=== PATIENT | female | born 1980 | race Caucasian/White ===

== ENCOUNTER 2020-10-28 10:04 | Inpatient (IN) ==
[2020-10-28] MEDS ORDERED: Ringers Solution, Lactated 2,000 ML ONE (10:59)
[2020-10-28] MEDS ORDERED: CeFAZolin 2,000MG/50ML DUPLEX 2,000 MG/50 ML BAG IVPB ONE (11:01)
[2020-10-28] MEDS ORDERED: Famotidine 20 MG/2 ML VIAL IVP ONE (11:01)
[2020-10-28] MEDS ORDERED: Oxytocin 20 units/ LR 1000 mL 20 UNIT/1,000 ML BAG IVC ONE (11:01)
[2020-10-28] MEDS ORDERED: Ringers Solution, Lactated 1,000 ML IVC ONE (11:01)
[2020-10-28] MEDS ORDERED: Metoclopramide 10 MG/2 ML VIAL IVP ONE (11:01)
[2020-10-28 11:19] LABS: Basophils % 0.2 %; Eosinophils # 0.1 K/mcL (0.0-0.6); Eosinophils % 0.6 %; Hematocrit 30.7 % (35.3-44.9); Hemoglobin 10.6 g/dL (11.5-15.4); Immature Granulocytes % 0.5 % (0-4); Lymphocytes # 1.9 K/mcL (0.6-4.6); Lymphocytes % 18.6 %; Mean Corpuscular HGB Conc 34.5 g/dL (31.6-35.5); Mean Corpuscular Hemoglobin 31.3 pg (28.0-33.3); Mean Corpuscular Volume 90.6 fL (83.0-100.0); Mean Platelet Volume 9.7 fL (9.4-12.4); Monocytes # 0.6 K/mcL (0.0-1.3); Monocytes % 5.6 %; Neutrophils # 7.4 K/mcL (1.6-8.9); Platelet Count 136 K/mcL (140-400); Red Blood Count 3.39 M/mcL (3.82-4.97); Red Cell Distribution Width 13.1 % (11.5-14.5); Segmented Neutrophils % 74.5 %
[2020-10-28] MEDS ORDERED: *HR* HYDROmorphone PF 0.5 MG/0.5 ML SYRINGE IVP PRN (11:23)
[2020-10-28] MEDS ORDERED: Ondansetron 4 MG/2 ML VIAL IVP PRN ×2 (11:23→15:36)
[2020-10-28 11:32] LABS: Amphetamine Screen,Urine Negative ng/mL (Cutoff=1000); Barbiturate Screen,Urine Negative ng/mL (Cutoff=200); Benzodiazepines Screen,Urine Negative ng/mL (Cutoff=200); Cannabinoid Screen,Urine Negative ng/mL (Cutoff = 50); Cocaine Screen,Urine Negative ng/mL (Cutoff= 300); Opiate Screen,Urine Negative ng/mL (Cutoff=300); Phencyclidine Screen,Urine Negative ng/mL (Cutoff=25)
[2020-10-28] MEDS ORDERED: Acetaminophen IV 1,000 MG/100 ML BAG IVPB ONE (11:40)
[2020-10-28] MEDS ORDERED: *HR* Morphine Sulfate/PF 10 MG/10 ML AMPUL ONE (11:40)
[2020-10-28] MEDS ORDERED: *HR* FentaNYL (PF) 100 MCG/2 ML VIAL ONE (11:40)
[2020-10-28] MEDS ORDERED: Ondansetron 4 MG/2 ML VIAL ONE ×2 (11:41→12:25)
[2020-10-28] MEDS ORDERED: EPHEDrine 50 MG/ML VIAL ONE (11:41)
[2020-10-28] MEDS ORDERED: *HR* Phenylephrine 10 MG/ML VIAL ONE (12:34)
[2020-10-28] MEDS ORDERED: Ketorolac 30 MG/ML VIAL ONE (13:05)
[2020-10-28] MEDS ORDERED: *HR* OxyCODONE Immed Rel 5 MG TABLET PO PRN (15:36)
[2020-10-28] MEDS ORDERED: Oxytocin 20 units/ LR 1000 mL 20 UNIT/1,000 ML BAG IVC SCH (15:36)
[2020-10-28] MEDS ORDERED: Metoclopramide 10 MG/2 ML VIAL IVP PRN (15:36)
[2020-10-28 20:12] VITALS: O2SAT 98
[2020-10-28] MEDS: Ibuprofen 600 MG TABLET PO SCH (20:36)
[2020-10-28] MEDS: Acetaminophen 325 MG TABLET PO SCH (20:36)
[2020-10-28] MEDS: Simethicone 80 MG TAB.CHEW PO PRN (20:36)
[2020-10-29] MEDS: Acetaminophen 325 MG TABLET PO SCH ×3 (06:15→14:04)
[2020-10-29] MEDS: Ibuprofen 600 MG TABLET PO SCH ×3 (06:15→14:04)
[2020-10-29] MEDS: Simethicone 80 MG TAB.CHEW PO PRN (07:44)
[2020-10-29 07:45] VITALS: BP 128/87; PULSE 89; TEMP 98.3
[2020-10-29] MEDS ORDERED: Prenatal Vit/FA 1 EACH TABLET PO SCH (09:00)
== END 2020-10-29 16:25 | disposition home or self-care (01) | DRG 788 ==
LOC: SAMDAY 10:04 → 1NENULAB 10:06 → 1NENUOBS 15:36
PROVIDERS: ADMIT Obstetrics & Gynecology; ATTEND Obstetrics & Gynecology